=== PATIENT | female | born 1930 | race Caucasian/White ===

== ENCOUNTER → 2017-08-19 | Outpatient (CLI) | payer MEDICARE ==
[~2017-08-19] MED LIST: DILT180 PO; HYDCHL50 PO; LEVSOD75 PO; LISI20 PO; LOVA40 PO
== END ==
LOC: LAB SHORT 11:58 → PLD 11:58
DX: D48.5 Neoplasm of uncertain behavior of skin (principal)
CPT/HCPCS: 88305

== ENCOUNTER → 2017-09-03 | Outpatient (CLI) | payer MEDICARE | END | disposition home or self-care (01) | LOC: LAB 16:38 | DX: L08.0 Pyoderma (principal) | CPT/HCPCS: 87070; 87205 ==

== ENCOUNTER → 2018-10-01 | Outpatient (CLI) | payer MEDICARE | END | disposition home or self-care (01) | LOC: LAB 16:01 → LAB SHORT 16:01 | DX: L08.0 Pyoderma (principal) | CPT/HCPCS: 87070; 87077; 87186; 87205 ==

== ENCOUNTER → 2018-10-19 | Outpatient (CLI) | payer MEDICARE | END | disposition home or self-care (01) | LOC: LAB SHORT 16:34 → LAB 16:34 | DX: L08.0 Pyoderma (principal) | CPT/HCPCS: 87070; 87205 ==